=== PATIENT | male | born 1975 | race Caucasian/White ===

== ENCOUNTER 2020-03-16 16:25 | Emergency (ER) | payer OTHER ==
[2020-03-16] MEDS ORDERED: Sulfameth/Trimethoprim DS 800-160mg TAB ONE (16:51)
== END 2020-03-16 17:07 | disposition home or self-care (01) ==
LOC: MADERS 16:25
DX: L03.114 Cellulitis of left upper limb (principal); E11.9 Type 2 diabetes mellitus without complications; F17.210 Nicotine dependence, cigarettes, uncomplicated; Z79.84 Long term (current) use of oral hypoglycemic drugs; Z79.899 Other long term (current) drug therapy
CPT/HCPCS: 99283